=== PATIENT | female | born 1965 | race Caucasian/White ===

== ENCOUNTER → 2016-10-04 | Outpatient (CLI) | payer MEDICARE, OTHER, MEDICAID ==
[2016-10-04 10:11] LABS: ABSOLUTE LYMPHOCYTES (AUTO) 1.7 10^3/uL (0.5-4.7); ABSOLUTE MONOCYTES (AUTO) 0.3 10^3/uL (0.1-1.4); ABSOLUTE NEUT (AUTO) 2.9 10^3/uL (1.7-8.2); BASOPHILS % (AUTO) 0.3 % (0-2); HEMATOCRIT 40.2 % (36.0-47.0); HEMOGLOBIN 13.9 g/dL (12.0-15.5); HGB HCT DIFFERENCE 1.5; LYMPHOCYTES % (AUTO) 34.9 % (13-45); MEAN CORPUSCULAR HEMOGLOBIN 28.6 pg (27.0-33.4); MEAN CORPUSCULAR HGB CONC 34.5 g/dL (32.0-36.0); MEAN CORPUSCULAR VOLUME 83 fl (80-97); RED BLOOD COUNT 4.84 10^6/uL (3.72-5.28); RED CELL DISTRIBUTION WIDTH 13.7 % (11.5-14.0); SEGMENTED NEUTROPHILS % (AUTO) 58.8 % (42-78)
[2016-10-04 10:34] LABS: ALANINE AMINOTRANSFERASE 26 U/L (9-52); ALBUMIN 4.1 g/dL (3.5-5.0); ALKALINE PHOSPHATASE 91 U/L (38-126); ANION GAP 11 (5-19); ASPARTATE AMINO TRANSFERASE 20 U/L (14-36); BILIRUBIN,DIRECT 0.3 mg/dL (0.0-0.4); BILIRUBIN,TOTAL 0.6 mg/dL (0.2-1.3); BLOOD UREA NITROGEN 14 mg/dL (7-20); CALCIUM 9.6 mg/dL (8.4-10.2); CARBON DIOXIDE 24 mmol/L (22-30); CHLORIDE 106 mmol/L (98-107); CREATININE RESULT 0.63 mg/dL (0.52-1.25); GLUCOSE 98 mg/dL (75-110); POTASSIUM 4.6 mmol/L (3.6-5.0); SODIUM 141.4 mmol/L (137-145); TOTAL PROTEIN 7.4 g/dL (6.3-8.2)
== END ==
LOC: OD 09:15
PROVIDERS: ATTEND Nurse Practitioner Psychiatric/Mental Health
DX: D64.9 Anemia, unspecified (principal); E66.9 Obesity, unspecified
CPT/HCPCS: 36415; 80053; 85025

== ENCOUNTER → 2017-05-30 | Outpatient (CLI) | payer MEDICARE, OTHER, MEDICAID ==
--- NOTE | 2017-05-30 11:58 | RADIOLOGY REPORT (SQ) ---
EXAM DESCRIPTION: MRI HEAD COMBO COMPLETED DATE/TIME: 05/30/2017 11:36 am REASON FOR STUDY: H90.3 SENSORINEURAL HEARING LOSS, BILATERAL H90.3 SENSORINEURAL HEARING LOSS, ELLEN ATERAL COMPARISON: None. TECHNIQUE: Multiplanar imaging includes noncontrasted T1, T2, FLAIR, diffusion with ADC map and post gadolinium contrast T1 sequences. Thin sections through the internal auditory canals. Images stored on PACS. CONTRAST TYPE AND DOSE: 20 mL Multihance. RENAL FUNCTION: GFR > 60. LIMITATIONS: None. FINDINGS: ANATOMY: No anomalies. Normal vascular flow voids. Pituitary fossa normal. CSF SPACES: Normal in size and contour. No hemorrhage. CEREBRUM: Sulci and gyri normal in size and contour. Normal white matter signal on FLAIR imaging. No evidence of hemorrhage, mass, or extraaxial fluid collection. No abnormal enhancement post contrast. POSTERIOR FOSSA: No signal alteration. No hemorrhage. No edema, masses, or mass effect. Internal abdirashid tory canals, cerebellopontine angles, mastoids normal. No enhancing lesions. No abnormal enhancement post contrast. DIFFUSION IMAGING: Negative for acute or subacute infarction. ORBITS: There is approximately 1.9 cm diameter well-circumscribed heterogeneously enhancing left retr obulbar mass. Intermediate signal on T2. Mass appears separate from the optic nerve. PARANASAL SINUSES: No fluid levels. Mucosa normal. OTHER: No other significant finding. IMPRESSION: 1. 2 cm left retrobulbar mass. Ophthalmology consultation is recommended. 2. Normal IAC's. EVIDENCE OF ACUTE STROKE: NO. TECHNICAL DOCUMENTATION: JOB ID: [id number]- All Rights Reserved
== END ==
LOC: RAD 11:02
PROVIDERS: ATTEND Otolaryngology
DX: H90.3 Sensorineural hearing loss, bilateral (principal)
CPT/HCPCS: 82565; 70553; A9577

== ENCOUNTER → 2018-02-13 | Outpatient (CLI) | payer MEDICARE, OTHER ==
--- NOTE | 2018-02-13 09:18 | WOMENS IMAGING REPORT ---
EXAM DESCRIPTION: 3D SCREENING MAMMO BILAT COMPLETED DATE/TIME: 02/13/2018 8:31 am REASON FOR STUDY: SCREENING MAMMO Z12.31 ENCNTR SCREEN MAMMOGRAM FOR MALIGNANT NEOPLASM OF GREGORIO COMPARISON: Multiple since 2010 TECHNIQUE: Standard craniocaudal and mediolateral oblique views of each breast recorded using digita l acquisition and breast tomosynthesis. LIMITATIONS: None. FINDINGS: Findings present which are benign by mammographic criteria. No suspicious masses, calcifi cations or architectural distortion. Pertinent benign findings: Benign bilateral breast parenchymal calcifications Read with the assistance of CAD. .[facility] - R2 Cenova Version 1.3 .[facility] - R2 Cenova Version 1.3 .[facility] - R2 Cenova Version 2.4 .[facility] [place] R2 Cenova Version 2.4 .[facility] - R2 High [employer] Mathematics Teacher Version 9.2 Benign mammographic findings may include one or more of the following: Smooth masses, popcorn/rim/co arse calcifications, asymmetries, post-procedure changes, and lesions with long-standing stability. IMPRESSION: BENIGN MAMMOGRAPHIC FINDINGS. BIRADS 2 BREAST DENSITY: d. The breasts are extremely dense, which lowers the sensitivity of mammography. BIRAD: 2 BENIGN FINDING(S) RECOMMENDATION: RECOMMENDATION: ROUTINE SCREENING Please continue yearly bilateral screening tomosynthesis in January 2019 COMMENT: The patient has been notified of the results by letter per SA requirements. Additional no tification policies are in place for contacting patient with suspicious or incomplete findings. Quality ID #225: The [employer] recommends an annual screening mammogram for women aged 40 years or over. This facility utilizes a reminder system to ensure that all patients receive reminder letters, and/or direct phone calls for appointments. This includes reminders for routine scr eening mammograms, diagnostic mammograms, or other Breast Imaging Interventions when appropriate. Th is patient will be placed in the appropriate reminder system. The [employer] (ACR) has developed recommendations for screening MRI of the breast s in certain patient populations, to be used in conjunction with mammography. Breast MRI surveillanc e may be appropriate for women with more than 20% lifetime risk of developing breast cancer as deter mined by genetic testing, significant family history of the disease, or history of mantle radiation f or Hodgkins Disease. ACR Practice Guidelines 2008. DBT Technology DBT is a type of tomographic mammography. With conventional mammography, overlapping breast tissue ma y make lesions difficult to detect, even with good compression. DBT uses an x-ray tube that rotates a round the breast, taking images at different angles. These images are then combined to create thin sl ices of the breast that the radiologist can view as a 3D reconstruction. The IntelliMat unit can perform full-field digital mammograms (2D imaging); or DBT (3D imaging); or both, in a combination mode that quickly performs both the mammogram and the tomosynthesis scan while the breast is still compressed. PQRS 6045F: Fluoroscopic imaging is not utilized for breast tomosynthesis. TECHNICAL DOCUMENTATION: FINDING NUMBER: (1) ASSESSMENT: (1) JOB ID: [id number] [employer]- All Rights Reserved Reading location - IP/workstation name: [email or web address]
== END ==
LOC: WI 08:02
PROVIDERS: ATTEND Internal Medicine Geriatric Medicine
DX: Z12.31 Encounter for screening mammogram for malignant neoplasm of breast (principal)
CPT/HCPCS: 77063; 77067

== ENCOUNTER 2018-11-22 08:10 | Emergency (ER) | payer MEDICARE, OTHER ==
[2018-11-22 08:17] VITALS: BP 116/85
[2018-11-22] MEDS ORDERED: IBUPROFEN 800 MG TABLET PO ONE (09:13)
--- NOTE | 2018-11-22 09:17 | ER Document Report ---
ED Extremity Problem, Lower - General Chief Complaint: Foot Pain Stated Complaint: FOOT PAIN Time Seen by Provider: 11/22/18 09:12 Primary Care Provider: AFRICA PÉREZ MD [Primary Care Provider] - Follow up as needed Mode of Arrival: Wheelchair Information source: Patient Notes: 52-year-old female presents to ED for complaint of a very painful blister to the bottom of the left heel. She states she does not remember any injury but she thinks she might have accidentally hit the door jam between the 2 rooms with her heel on Monday. There is no infection to the area there is a blister. She states it is too painful to walk and work but she has been working until today. Patient is alert oriented respirations regular and unlabored speaking in full sentences while limp due to the pain in her left heel. TRAVEL OUTSIDE OF THE [place] IN LAST 30 DAYS: No - HPI Patient complains to provider of: Pain, Other Location: Foot Occurred: Other - Monday or Monday Where: Home Onset/Duration: Gradual Quality of pain: Sharp, Throbbing Severity: Severe Pain Level: 5 Context: Barefoot Recent injury: Possibly Exacerbated by: Movement, Walking Relieved by: Nothing, Elevation, Rest - Related Data Allergies/Adverse Reactions: amoxicillin trihydrate [From Augmentin] Allergy (Intermediate, Verified 11/22/18 08:17) itching Penicillins Allergy (Intermediate, Verified 11/22/18 08:17) itching Potassium Clavulanate * [From Augmentin] Allergy (Intermediate, Verified 11/22/18 08:17) itching latex [Latex] Allergy (Mild, Verified 11/22/18 08:17) hands red and itching CRYSTAL SUGAR Allergy (Severe, Uncoded 11/22/18 08:17) ITCHING FROSTED MINI WHEATS Allergy (Severe, Uncoded 11/22/18 08:17) ITCHING Past Medical History - General Information source: Patient - Social History Smoking Status: Never Smoker Chew tobacco use (# tins/day): No Frequency of alcohol use: None Drug Abuse: None Occupation: [employer] Lives with: Family Family History: None Patient has suicidal ideation: No Patient has homicidal ideation: No - Past Medical History Cardiac Medical History: Reports: None Denies: Hx Coronary Artery Disease, Hx Heart Attack, Hx Hypertension Pulmonary Medical History: Reports: None EENT Medical History: Reports: None Neurological Medical History: Reports: Hx Seizures - SEIZURE PADS ON RAILS FALL BAND APPLIED Endocrine Medical History: Reports: None Renal/ Medical History: Reports: None Malignancy Medical History: Reports: None GI Medical History: Reports: None Musculoskeletal Medical History: Reports Hx Arthritis, Reports Hx Musculoskeletal Trauma Skin Medical History: Reports None Psychiatric Medical History: Reports: None Traumatic Medical History: Reports: Hx Fractures - Toe Infectious Medical History: Reports: None Past Surgical History: Reports: Hx Oral Surgery, Hx Thyroid Surgery - Immunizations Hx Diphtheria, Pertussis, Tetanus Vaccination: No Review of Systems - Review of Systems Constitutional: No symptoms reported EENT: No symptoms reported Cardiovascular: No symptoms reported Respiratory: No symptoms reported Gastrointestinal: No symptoms reported Genitourinary: No symptoms reported Female Genitourinary: No symptoms reported Musculoskeletal: No symptoms reported Skin: Other - Large blister to the bottom of the left heel no signs of infection Hematologic/Lymphatic: No symptoms reported Neurological/Psychological: No symptoms reported -: Yes All other systems reviewed and negative Physical Exam - Vital signs Vitals: Temp Pulse Resp BP Pulse Ox 98.7 F 104 H 16 116/85 96 11/22/18 08:16 11/22/18 08:16 11/22/18 08:16 11/22/18 08:16 11/22/18 08:16 Interpretation: Normal - General General appearance: Appears well, Alert - HEENT Head: Normocephalic, Atraumatic Eyes: Normal Pupils: PERRL - Respiratory Respiratory status: No respiratory distress Chest status: Nontender Breath sounds: Normal Chest palpation: Normal - Cardiovascular Rhythm: Regular Heart sounds: Normal auscultation Murmur: No - Abdominal Inspection: Normal Distension: No distension Bowel sounds: Normal Tenderness: Nontender Organomegaly: No organomegaly - Back Back: Normal, Nontender - Extremities General upper extremity: Normal inspection, Nontender, Normal color, Normal ROM, Normal temperature General lower extremity: Normal color, Normal ROM, Normal temperature. No: Conchita's sign Foot: Tender, Ecchymosis, No evidence of FB, Other - Large water-filled blister to the bottom of the left heel no signs of infection - Neurological Neuro grossly intact: Yes Cognition: Normal Orientation: AAOx4 Fingal Coma Scale Eye Opening: Spontaneous Fingal Coma Scale Verbal: Oriented Rogelio Coma Scale Motor: Obeys Commands Rogelio Coma Scale Total: 15 Speech: Normal Motor strength normal: LUE, RUE, LLE, RLE Sensory: Normal - Psychological Associated symptoms: Normal affect, Normal mood - Skin Skin Temperature: Warm Skin Moisture: Dry Skin Color: Normal Course - Re-evaluation Re-evalutation: 11/22/18 09:23 Patient was medicated with ibuprofen and instructed to follow-up with podiatry for continued pain in this blister to the bottom of the left heel. Patient verbalized understanding and agreement with treatment plan patient was discharged home. - Vital Signs Vital signs: Temp Pulse Resp BP Pulse Ox 98.7 F 104 H 16 116/85 96 11/22/18 08:16 11/22/18 08:16 11/22/18 08:16 11/22/18 08:16 11/22/18 08:16 Discharge - Discharge Clinical Impression: Blister of left heel Qualifiers: Encounter type: initial encounter Qualified Code(s): S90.822A - Blister (nonthermal), left foot, initial encounter Condition: Stable Disposition: HOME, SELF-CARE Additional Instructions: You were seen today for large blisters that is painful to the back of your left heel. Acetaminophen Acetaminophen may be taken for pain relief or fever control. It's much safer than aspirin, offering a wider range of "safe" dosages. It is safe during . Some brand names are Tylenol, Panadol, Datril, Anacin 3, Tempra, and Liquiprin. Acetaminophen can be repeated every four hours. The following are maximum recommended dosages: WEIGHT Dose Drops Elixir Chewable(80mg) (LBS.) drprs=droppers tsp=teaspoon 6 40 mg .4 ml (1/2) 6-11 80 mg .8 ml (full) 1/2 tsp 1 tab 12-16 120 mg 1 1/2 drprs 3/4 tsp 1 1/2 tabs 17-23 160 mg 2 drprs 1 tsp 2 tabs 24-30 240 mg 3 drprs 1 1/2 tsp 3 tabs 30-35 320 mg 2 tsp 4 tabs 36-41 360 mg 2 1/4 tsp 4 1/2 tabs 42-47 400 mg 2 1/2 tsp 5 tabs 48-53 480 mg 3 tsp 6 tabs 54-59 520 mg 3 1/4 tsp 6 1/2 tabs 60-64 560 mg 3 1/2 tsp 7 tabs 65-70 600 mg 3 3/4 tsp 7 1/2 tabs 71-76 640 mg 4 tsp 8 tabs 77-82 720 mg 4 1/2 tsp 9 tabs 83-88 800 mg 5 tsp 10 tabs >89 pounds or adults 650 mg to 900 mg Acetaminophen can be repeated every four hours. Maximum daily dose not to exceed 4000 mg. These maximum recommended dosages are slightly higher than the dosages written on the product container, but these dosages are very safe and well below the toxic dosage for acetaminophen. Ibuprofen Ibuprofen is an excellent, safe drug for pain control. In addition, it has potent antiinflammatory effects which are beneficial, especially in the treatment of injuries, arthritis, or tendonitis. It's best to take ibuprofen with food. Persons with ulcer disease or allergy to aspirin should notify their physician of this before taking ibuprofen. Take the medication exactly as prescribed. Don't take additional doses unless instructed to do so by your doctor. If you develop wheezing, shortness of breath, hives, faintness, stomach pain, vomiting, or dark black stools, return for re-evaluation at once. Try to get some callus pads to place on this area until you can follow-up with the junior database administrator. FOLLOW-UP CARE: If you have been referred to a physician for follow-up care, call the physicians office for an appointment as you were instructed or within the next two days. If you experience worsening or a significant change in your symptoms, notify the physician immediately or return to the Emergency Department at any time for re-evaluation. Forms: Return to Work Referrals: AFRICA PÉREZ MD [Primary Care Provider] - Follow up as needed THERESA MADRIGAL DPM [ACTIVE STAFF] - Follow up as needed
== END 2018-11-22 09:20 | disposition home or self-care (01) ==
LOC: ER 08:10
DX: S90.822A Blister (nonthermal), left foot, initial encounter (principal); M79.672 Pain in left foot; X58.XXXA Exposure to other specified factors, initial encounter; Y92.009 Unspecified place in unspecified non-institutional (private) residence as the place of occurrence of the external cause; Z88.0 Allergy status to penicillin; Z91.040 Latex allergy status
CPT/HCPCS: 99283; A9270

== ENCOUNTER → 2019-02-18 | Outpatient (CLI) | payer MEDICARE, OTHER ==
--- NOTE | 2019-02-18 15:28 | WOMENS IMAGING REPORT ---
EXAM DESCRIPTION: 3D SCREENING MAMMO BILAT COMPLETED DATE/TIME: 02/18/2019 10:39 am REASON FOR STUDY: Z12.31 SCREENING MAMMO Z12.31 ENCNTR SCREEN MAMMOGRAM FOR MALIGNANT NEOPLASM OF B RE COMPARISON: 02/13/2018 and 02/29/2016. EXAM PARAMETERS: Standard craniocaudal and mediolateral oblique views of each breast recorded using digital acquisition and breast tomosynthesis. Read with the assistance of CAD. .[facility] - R2 Garland Maker Version 9.2 LIMITATIONS: None. FINDINGS: Findings present which are benign by mammographic criteria. No suspicious masses, calcific ations or architectural distortion. Pertinent benign findings: Benign calcifications. Benign mammographic findings may include one or more of the following: Smooth masses, popcorn/rim/coa rse calcifications, asymmetries, post-procedure changes, and lesions with long-standing stability. IMPRESSION: BENIGN MAMMOGRAPHIC FINDINGS. BIRADS 2 BREAST DENSITY: c. The breasts are heterogeneously dense, which may obscure small masses. BIRAD: ASSESSMENT: 2 BENIGN FINDING(S) RECOMMENDATION: ROUTINE SCREENING COMMENT: The patient has been notified of the results by letter per SA requirements. Additional no tification policies are in place for contacting patient with suspicious or incomplete findings. Quality ID #225: The [employer] recommends an annual screening mammogram for women aged 40 years or over. This facility utilizes a reminder system to ensure that all patients receive reminder letters, and/or direct phone calls for appointments. This includes reminders for routine scr eening mammograms, diagnostic mammograms, or other Breast Imaging Interventions when appropriate. Th is patient will be placed in the appropriate reminder system. TECHNICAL DOCUMENTATION: FINDING NUMBER: (1) ASSESSMENT: (1) JOB ID: [id number] [employer]- All Rights Reserved Reading location - IP/workstation name: [email or web address] [email or web address]
== END ==
LOC: WI 10:10
PROVIDERS: ATTEND Internal Medicine Geriatric Medicine
DX: Z12.31 Encounter for screening mammogram for malignant neoplasm of breast (principal)
CPT/HCPCS: 77063; 77067

== ENCOUNTER 2019-03-13 08:15 | Day surgery (SDC) | payer MEDICARE, OTHER ==
[2019-03-13] MEDS ORDERED: PROPOFOL INJ 200 MG/20 ML VIAL IV ONE (08:19)
[2019-03-13 11:54] VITALS: BP 131/87
--- NOTE | 2019-03-13 11:56 | Operative Report ---
Operative Report DATE OF SURGERY: 03/13/19 Operative Report: The risks, benefits and alternatives of the procedure including the risk of bleeding, perforation requiring surgery have been explained to the patient in detail and informed consent has been obtained. The patient is brought back to the endoscopy suite and placed in the left, lateral decubital position. Timeout was called. Propofol medication is administered. Rectal examination is done which did not reveal any masses, tears or fissures. An Olympus videoscope was introduced into the patient's rectum. Scope was then carefully advanced all the way to the cecum. Cecum was identified by the usual anatomical landmarks including the ileocecal valve as well as the appendiceal office. Photodocumentation is obtained. Scope was then sequentially pulled back via the various segments of the colon including the ascending colon, hepatic flexure, transverse colon, splenic flexure, descending colon and finally into the rectosigmoid portions of the colon. Retroflexion maneuvers performed. PREOPERATIVE DIAGNOSIS: Personal history of polyp POSTOPERATIVE DIAGNOSIS: Ascending colon polyp removed via biopsy forceps. Hepatic flexure polyp removed via snare polypectomy and retrieved, site cauterized. Internal hemorrhoids. Mild melanosis coli OPERATION: Colonoscopy with snare polypectomy. Colonoscopy with biopsy SURGEON: RAHEEM FELIX ANESTHESIA: LMAC TISSUE REMOVED OR ALTERED: As noted above. COMPLICATIONS: None. ESTIMATED BLOOD LOSS: None. INTRAOPERATIVE FINDINGS: As noted above. PROCEDURE: Patient tolerated the procedure well. No immediate post procedure complications are noted. Patient is discharged in good condition. Discharge date 03/13/2019. Discharge diet: Regular. Discharge activity: Regular. 2 to 3-week follow-up to discuss findings. Patient is instructed to call the office or proceed to the emergency room should there be any further problems or questions. 3 to 5-year surveillance colonoscopy.
== END 2019-03-13 12:00 | disposition home or self-care (01) ==
LOC: OROUT 08:15
PROVIDERS: ATTEND Internal Medicine Gastroenterology
DX: Z86.010 Personal history of colon polyps (principal); D12.2 Benign neoplasm of ascending colon; K64.8 Other hemorrhoids; K63.89 Other specified diseases of intestine; Z79.899 Other long term (current) drug therapy; D12.6 Benign neoplasm of colon, unspecified; E66.9 Obesity, unspecified; Z68.33 Body mass index [BMI] 33.0-33.9, adult
CPT/HCPCS: 45380; 88305 ×2; 00811; J2704; 811

== ENCOUNTER 2019-06-11 18:26 | Observation (INO) | payer MEDICARE, OTHER ==
[2019-06-11 18:57] LABS: ABSOLUTE LYMPHOCYTES (AUTO) 0.6 10^3/uL (0.5-4.7); ABSOLUTE MONOCYTES (AUTO) 0.1 10^3/uL (0.1-1.4); ABSOLUTE NEUT (AUTO) 7.7 10^3/uL (1.7-8.2); BASOPHILS % (AUTO) 0.1 % (0-2); HEMATOCRIT 36.9 % (36.0-47.0); HEMOGLOBIN 13.1 g/dL (12.0-15.5); LYMPHOCYTES % (AUTO) 6.7 % (13-45); MEAN CORPUSCULAR HEMOGLOBIN 28.9 pg (27.0-33.4); MEAN CORPUSCULAR HGB CONC 35.5 g/dL (32.0-36.0); MEAN CORPUSCULAR VOLUME 82 fl (80-97); MONOCYTES % (AUTO) 1.2 % (3-13); PLATELET COUNT 211 10^3/uL (150-450); RED BLOOD COUNT 4.52 10^6/uL (3.72-5.28); RED CELL DISTRIBUTION WIDTH 14.1 % (11.5-14.0); TOTAL CELLS COUNTED % (AUTO) 100 %; WHITE BLOOD COUNT 8.4 10^3/uL (4.0-10.5)
[2019-06-11 19:15] LABS: ALBUMIN 4.1 g/dL (3.5-5.0); ALKALINE PHOSPHATASE 87 U/L (38-126); ANION GAP 9 (5-19); ASPARTATE AMINO TRANSFERASE 25 U/L (14-36); BILIRUBIN,DIRECT 0.3 mg/dL (0.0-0.4); BILIRUBIN,TOTAL 0.5 mg/dL (0.2-1.3); BLOOD UREA NITROGEN 17 mg/dL (7-20); CALCIUM 9.1 mg/dL (8.4-10.2); CARBON DIOXIDE 25 mmol/L (22-30); CHLORIDE 105 mmol/L (98-107); GLUCOSE 150 mg/dL (75-110); POTASSIUM 3.9 mmol/L (3.6-5.0); TOTAL PROTEIN 7.5 g/dL (6.3-8.2)
[2019-06-11 19:16] LABS: ALCOHOL < 10 mg/dL (NONE DETECTED)
[2019-06-11] MEDS ORDERED: LORAZEPAM INJ 2 MG/1 ML VIAL IV ONE (22:46)
[2019-06-11] MEDS ORDERED: PHENYTOIN SODIUM INJ/PF 250 MG/5 ML SDV IV ONE (22:48)
--- NOTE | 2019-06-11 22:49 | ER Document Report ---
ED General - General Chief Complaint: Seizure Stated Complaint: POSSIBLE SEIZURE Time Seen by Provider: 06/11/19 22:46 Primary Care Provider: AFRICA PÉREZ MD [Primary Care Provider] - Follow up as needed Mode of Arrival: Ambulatory Information source: Patient, Relative TRAVEL OUTSIDE OF THE [place] IN LAST 30 DAYS: No - HPI Onset: Yesterday Onset/Duration: Sudden Quality of pain: No pain Severity: Severe Pain Level: Denies Associated symptoms: Other - confusion, 3 seizures at home Exacerbated by: Denies Relieved by: Denies Similar symptoms previously: No - patient has never had back to back seizures like this before Recently seen / treated by doctor: No Notes: 53 year old female with a history of Seizures maintained on Keppra 750mg BID here for back to back seizures. The patient apparently had 3 seizures at home prior to ER arrival. The patient and her tell me she has not missed any of her Keppra doses and she has not had a seizure in 8 years. The patient had a 4th seizure in the ER before I performed a full physical exam. Patient was given ativan in the ER followed by Phenytoin and my history was obtained from her initially and then by her once she was not postical. Patient and deny recent fevers, chills, sweats, nausea, vomiting or infectious symptoms. Patient hit her head during one seizure today apparently. - Related Data Allergies/Adverse Reactions: amoxicillin trihydrate [From Augmentin] Allergy (Intermediate, Verified 06/11/19 18:43) itching Penicillins Allergy (Intermediate, Verified 06/11/19 18:43) itching Potassium Clavulanate * [From Augmentin] Allergy (Intermediate, Verified 06/11/19 18:43) itching latex [Latex] Allergy (Mild, Verified 06/11/19 18:43) hands red and itching CRYSTAL SUGAR Allergy (Severe, Uncoded 06/11/19 18:43) ITCHING FROSTED MINI WHEATS Allergy (Severe, Uncoded 06/11/19 18:43) ITCHING Home Medications: Levertiractem, ibuprofen, omeprazole, benzonate, zomig, ferrous sulfate, oxybutin. Past Medical History - General Information source: Patient - Social History Smoking Status: Never Smoker Chew tobacco use (# tins/day): No Frequency of alcohol use: None Drug Abuse: None Lives with: Family Family History: None Patient has suicidal ideation: No Patient has homicidal ideation: No - Past Medical History Cardiac Medical History: Denies: Hx Coronary Artery Disease, Hx Heart Attack, Hx Hypertension Pulmonary Medical History: Denies: Hx Asthma, Hx Bronchitis, Hx COPD, Hx Pneumonia Neurological Medical History: Reports: Hx Seizures - LAST SZ 11YRS AGO. Denies: Hx Cerebrovascular Accident Renal/ Medical History: Denies: Hx Peritoneal Dialysis Musculoskeletal Medical History: Reports Hx Arthritis - BACK, Reports Hx Musculoskeletal Trauma Traumatic Medical History: Reports: Hx Fractures - Toe Past Surgical History: Reports: Hx Oral Surgery, Hx Thyroid Surgery. Denies: Hx Hysterectomy - Immunizations Hx Diphtheria, Pertussis, Tetanus Vaccination: No Hx Pneumococcal Vaccination: 01/29/19 Review of Systems - Review of Systems Constitutional: No symptoms reported EENT: No symptoms reported Cardiovascular: No symptoms reported Respiratory: No symptoms reported Gastrointestinal: No symptoms reported Genitourinary: No symptoms reported Female Genitourinary: No symptoms reported Musculoskeletal: No symptoms reported Skin: No symptoms reported Hematologic/Lymphatic: No symptoms reported Neurological/Psychological: Seizure -: Yes All other systems reviewed and negative Physical Exam - Vital signs Vitals: Resp Pulse Ox 23 H 95 06/11/19 18:35 06/11/19 18:35 - Notes Notes: GENERAL: Well-appearing, well-nourished and in no acute distress. HEAD: Atraumatic, normocephalic. EYES: Pupils equal round and reactive to light, extraocular movements intact, sclera anicteric, conjunctiva are normal. ENT: TMs normal, nares patent, oropharynx clear without exudates. Moist mucous membranes. NECK: Normal range of motion, supple without lymphadenopathy or JVD. LUNGS: Breath sounds clear to auscultation bilaterally and equal. No wheezes rales or rhonchi. HEART: Regular rate and rhythm without murmurs, rubs or gallops. ABDOMEN: Soft, nontender, normoactive bowel sounds. No guarding, no rebound. No masses appreciated. EXTREMITIES: Normal range of motion, no pitting or edema. No clubbing or cyanosis. NEUROLOGICAL: Cranial nerves II through XII grossly intact. Normal speech, normal gait. PSYCH: Normal mood, normal affect. SKIN: Warm, Dry, normal turgor, no rashes or lesions noted. Course - Re-evaluation Re-evalutation: 06/12/19 00:42 The patient had 3 seizures at home and she had 1 seizure here in the ER. The patient says she has been taking her Keppra 750mg BID as prescribed and she says she hasnt missed any doses. Patient was given 1mg of Ativan in the ER right after her seizure and 1g of Phenytoin. Patient admitted for OBs to her PCP Dr. Pérez. Keppra level ordered but it is a send out. Labs are unremarkable in the ER and her head CT (ordered due to concern of head trauma during a seizure and fact she had back to back seizures) unremarkable. - Vital Signs Vital signs: Temp Pulse Resp BP Pulse Ox 97.8 F 82 17 112/65 95 06/11/19 18:43 06/11/19 18:43 06/11/19 22:01 06/11/19 22:01 06/11/19 22:01 - Laboratory Result Diagrams: 06/11/19 18:37 06/11/19 18:37 Laboratory results interpreted by me: 06/11/19 06/11/19 18:37 18:37 RDW 14.1 H Lymph % (Auto) 6.7 L Hudson % (Auto) 1.2 L Seg Neutrophils % 92.0 H Glucose 150 H Discharge - Discharge Clinical Impression: Seizure disorder Condition: Stable Disposition: ADMITTED OBSERVATION Admitting Provider: Dylon Unit Admitted: Telemetry Referrals: AFRICA PÉREZ MD [Primary Care Provider] - Follow up as needed
--- NOTE | 2019-06-11 23:58 | RADIOLOGY REPORT (SQ) ---
CT HEAD WITHOUT IV CONTRAST EXAM DATE: 06/11/2019 10:56 PM MAILS SUPERVISOR HISTORY: having back to back seizures, had head trauma. COMPARISON: None. TECHNIQUE: CT scan of the brain without IV contrast. This exam was performed according to our departmental dose-optimization program, which includes automated exposure control, adjustment of the mA and/or kV according to patient size and/or use of iterative reconstruction technique. FINDINGS: The ventricles, cisterns, and sulci are age-appropriate. No evidence of acute infarction, intracranial hemorrhage, extra-axial fluid collection, or midline shift. No air-fluid levels are seen in the paranasal sinuses to suggest acute sinusitis. No depressed skull fracture. IMPRESSION: No acute intracranial findings.
[2019-06-12] MEDS ORDERED: LORAZEPAM INJ 2 MG/1 ML VIAL IV ONE (02:17)
[2019-06-12] MEDS: ACETAMINOPHEN 325 MG TABLET PO PRN (12:42)
[2019-06-13] MEDS ORDERED: BENZONATATE 100 MG CAPSULE PO PRN (01:54)
[2019-06-13] MEDS ORDERED: DOCUSATE SODIUM 100 MG CAPSULE PO PRN (01:54)
--- NOTE | 2019-06-13 02:45 | PDOC H&P ---
History of Present Illness Admission Date/PCP: 06/12/19 00:47 [facility] Patient complains of: Seizure activity History of Present Illness: MARYSE MCINTYRE is a 53 year old female patient known to my practice who presented to the ED with her brother due to witnessed recurrent seizure activities. Patient reported that she was unaware of the seizure but related onset to job related stress at local [employer]. She reported that her brother wasa present and able to narrate the course of her presenting symptoms. As per documented report, she had a witnessed seizure while in the ED that resolved with administration of Lorazepam and Phenytoin. Patient reported compliance with her anti seizure medication. She denied alcohol or illicit drug usage. No fever or chills. No reported vomiting with seizure episode. There was reported hitting of her head in the process of her seizure activity. She reported episode of headache since her admission. There is no recurrent seizure since arrival on the telemetry floor. She is currently on seizure precaution protocol. She denied any nausea, vomiting, abdominal pain, or diarrhea. no dysuria, urinary frequency, hematuria, or flank pain. She denied an dizziness, coughing, chest pain or difficulty with breathing. Her initial ED evaluation was unrevealing regarding possible etiology of her seizure activity. Her CT head a=was essentially normal. Her morbidities are as listed below. She was advised hospitalization for further evaluation and management. Past Medical History Cardiac Medical History: Denies: Coronary Artery Disease, Myocardial Infarction, Hypertension Pulmonary Medical History: Denies: Asthma, Bronchitis, Chronic Obstructive Pulmonary Disease (COPD), Pneumonia Neurological Medical History: Reports: Seizures - LAST SZ 11YRS AGO Musculoskeltal Medical History: Reports: Arthritis - BACK Psychiatric Medical History: Reports: Other - Developmental disability Hematology: Reports: Anemia Past Surgical History Past Surgical History: Denies: Hysterectomy Social History Lives with: Family Smoking Status: Never Smoker Electronic Cigarette use?: No - Advance Directive Resuscitation Status: Full Code Family History Family History: None Parental Family History Reviewed: Yes Children Family History Reviewed: Yes Sibling(s) Family History Reviewed.: Yes Medication/Allergy Home Medications: Ascorbic Acid [Vitamin C 500 mg Tablet] 500 mg PO DAILY 09/05/13 Docusate Sodium [Colace 100 mg Capsule] 200 mg PO QPM PRN 09/05/13 Ferrous Sulfate [Iron] 325 mg PO DAILY 09/05/13 Oxybutynin Chloride [Ditropan Xl] 10 mg PO BID 09/05/13 Vitamin B Comp and Vit C No.6 [Strovite] 2 each PO BID 09/05/13 Zolmitriptan [Zomig] 5 mg PO Q2HP PRN MDD 10MG 09/05/13 Omeprazole 40 mg PO ACBRKFST 03/12/19 Benzonatate [Tessalon Perles 100 mg Capsule] 200 mg PO Q8HP PRN 06/12/19 Ibuprofen [Motrin 800 mg Tablet] 800 mg PO Q8HP PRN 06/12/19 Levetiracetam 1,500 mg PO BID 06/12/19 Allergies/Adverse Reactions: amoxicillin trihydrate [From Augmentin] Allergy (Intermediate, Verified 06/11/19 18:43) itching apple Allergy (Intermediate, Verified 06/12/19 09:04) Generalized Itching Penicillins Allergy (Intermediate, Verified 06/11/19 18:43) itching Potassium Clavulanate * [From Augmentin] Allergy (Intermediate, Verified 06/11/19 18:43) itching latex [Latex] Allergy (Mild, Verified 06/11/19 18:43) hands red and itching CRYSTAL SUGAR Allergy (Severe, Uncoded 06/11/19 18:43) ITCHING FROSTED MINI WHEATS Allergy (Severe, Uncoded 06/11/19 18:43) ITCHING Review of Systems Constitutional: PRESENT: headache(s). ABSENT: chills, fever(s), weight gain, weight loss Eyes: PRESENT: visual disturbances Ears: ABSENT: hearing changes Nose, Mouth, and Throat: PRESENT: headache(s) Cardiovascular: ABSENT: chest pain, dyspnea on exertion, edema, orthropnea, palpitations Respiratory: ABSENT: cough, hemoptysis Gastrointestinal: ABSENT: abdominal pain, constipation, diarrhea, hematemesis, hematochezia, nausea, vomiting Genitourinary: ABSENT: dysuria, hematuria Musculoskeletal: ABSENT: joint swelling Integumentary: ABSENT: rash, wounds Neurological: PRESENT: convulsions Psychiatric: ABSENT: anxiety, depression, homidical ideation, suicidal ideation Endocrine: ABSENT: cold intolerance, heat intolerance, menstrual abnormalities, polydipsia, polyuria Hematologic/Lymphatic: ABSENT: easy bleeding, easy bruising, lymphadenopathy Allergic/Immunologic: ABSENT: seasonal rhinorrhea Physical Exam Vital Signs: Temp Pulse Resp BP Pulse Ox 97.6 F 91 16 132/85 H 98 06/12/19 03:54 06/12/19 07:00 06/12/19 03:54 06/12/19 03:54 06/12/19 03:54 Intake & Output 06/11/19 06/12/19 06/13/19 06:59 06:59 06:59 Weight 94.8 kg General appearance: PRESENT: obese Head exam: PRESENT: atraumatic, normocephalic Eye exam: PRESENT: conjunctiva pink, EOMI, PERRLA. ABSENT: scleral icterus Ear exam: PRESENT: normal external ear exam Mouth exam: PRESENT: moist, tongue midline Throat exam: ABSENT: post pharyngeal erythema, tonsillar erythema, tonsillar exudate, tonsillogmegaly, other Neck exam: PRESENT: full ROM. ABSENT: carotid bruit, JVD, lymphadenopathy, thyromegaly Respiratory exam: PRESENT: clear to auscultation flaca Cardiovascular exam: PRESENT: RRR. ABSENT: diastolic murmur, rubs, systolic murmur Pulses: PRESENT: normal dorsalis pedis pul, +2 pedal pulses bilateral Vascular exam: PRESENT: normal capillary refill GI/Abdominal exam: PRESENT: normal bowel sounds, soft. ABSENT: distended, guarding, mass, organolmegaly, rebound, tenderness Rectal exam: PRESENT: deferred Extremities exam: ABSENT: pedal edema Musculoskeletal exam: PRESENT: ambulatory Neurological exam: PRESENT: alert, awake, oriented to person, oriented to place, oriented to time, oriented to situation, CN II-XII grossly intact. ABSENT: motor sensory deficit Psychiatric exam: PRESENT: appropriate affect, normal mood. ABSENT: homicidal ideation, suicidal ideation Skin exam: PRESENT: dry, intact, warm. ABSENT: cyanosis, rash Results Laboratory Results: 06/11/19 18:37 06/11/19 18:37 06/11/19 06/11/19 18:37 18:37 WBC 8.4 RBC 4.52 Hgb 13.1 Hct 36.9 MCV 82 MCH 28.9 MCHC 35.5 RDW 14.1 H Plt Count 211 Seg Neutrophils % 92.0 H Sodium 139.1 Potassium 3.9 Chloride 105 Carbon Dioxide 25 Anion Gap 9 BUN 17 Creatinine 0.57 Est GFR ( Amer) > 60 Glucose 150 H Calcium 9.1 Magnesium 2.2 Total Bilirubin 0.5 AST 25 Alkaline Phosphatase 87 Total Protein 7.5 Albumin 4.1 Impressions: Head CT 06/11/19 22:56 IMPRESSION: No acute intracranial findings. Assessment & Plan - Diagnosis (1) Seizure disorder Is this a current diagnosis for this admission?: Yes Plan: See admitting attending physician orders for details about care plan. (2) GERD (gastroesophageal reflux disease) Qualifiers: Esophagitis presence: esophagitis presence not specified Qualified Code(s): K21.9 - Gastro-esophageal reflux disease without esophagitis Is this a current diagnosis for this admission?: Yes Plan: See admitting attending physician orders for details about care plan. (3) Migraine headache Qualifiers: Migraine type: unspecified Status migrainosus presence: without status migrainosus Intractability: not intractable Qualified Code(s): G43.909 - Migraine, unspecified, not intractable, without status migrainosus Is this a current diagnosis for this admission?: Yes Plan: See admitting attending physician orders for details about care plan. (4) Overactive bladder Is this a current diagnosis for this admission?: Yes Plan: See admitting attending physician orders for details about care plan. (5) Iron deficiency anemia Qualifiers: Iron deficiency anemia type: chronic blood loss Qualified Code(s): D50.0 - Iron deficiency anemia secondary to blood loss (chronic) Is this a current diagnosis for this admission?: Yes Plan: See admitting attending physician orders for details about care plan. - Time Time Spent: 50 to 70 Minutes Medications reviewed and adjusted accordingly: Yes Anticipated discharge: Home Within: Other - Inpatient Certification Based on my medical assessment, after consideration of the patient's comorbidities, presenting symptoms, or acuity I expect that the services needed warrant INPATIENT care.: Yes I certify that my determination is in accordance with my understanding of Medicare's requirements for reasonable and necessary INPATIENT services [42 CFR 412.3e].: Yes Medical Necessity: Significant Comorbidiites Make Outpatient Treatment Too Risky, Need Close Monitoring Due to Risk of Patient Decompensation, Need For Continuous Telemetry Monitoring, Risk of Complication if Not Cared For in Hospital, Risk of Diagnosis Which Will Require Inpatient Eval/Care/Monitoring Post Hospital Care: D/C [place] [employer] Documentation - Plan Summary Plan Summary: See admitting attending physician orders for details about care plan.
[2019-06-13] MEDS: PANTOPRAZOLE SODIUM 40 MG TABLET.DR PO SCH (05:36)
[2019-06-13 06:49] LABS: ABSOLUTE BASOPHILS # (AUTO) 0.1 10^3/uL (0.0-0.2); ABSOLUTE LYMPHOCYTES (AUTO) 2.2 10^3/uL (0.5-4.7); ABSOLUTE MONOCYTES (AUTO) 0.3 10^3/uL (0.1-1.4); ABSOLUTE NEUT (AUTO) 2.3 10^3/uL (1.7-8.2); BASOPHILS % (AUTO) 1.3 % (0-2); HEMATOCRIT 38.4 % (36.0-47.0); HEMOGLOBIN 13.4 g/dL (12.0-15.5); LYMPHOCYTES % (AUTO) 45.2 % (13-45); MEAN CORPUSCULAR HEMOGLOBIN 28.7 pg (27.0-33.4); MEAN CORPUSCULAR HGB CONC 34.9 g/dL (32.0-36.0); MEAN CORPUSCULAR VOLUME 82 fl (80-97); MONOCYTES % (AUTO) 6.6 % (3-13); RED BLOOD COUNT 4.67 10^6/uL (3.72-5.28); RED CELL DISTRIBUTION WIDTH 14.2 % (11.5-14.0); SEGMENTED NEUTROPHILS % (AUTO) 46.9 % (42-78); TOTAL CELLS COUNTED % (AUTO) 100 %; WHITE BLOOD COUNT 4.9 10^3/uL (4.0-10.5)
[2019-06-13 07:01] LABS: PLATELET COUNT 146 10^3/uL (150-450)
[2019-06-13] MEDS: OXYBUTYNIN CHLORIDE 5 MG TABLET PO SCH ×2 (09:03→17:07)
[2019-06-13] MEDS: FERROUS SULFATE 325 MG TABLET PO SCH (09:03)
[2019-06-13] MEDS: ASCORBIC ACID 500 MG TABLET PO SCH (09:03)
[2019-06-13] MEDS: LEVETIRACETAM 500 MG TABLET PO SCH ×2 (09:03→17:07)
[2019-06-13] MEDS: ENOXAPARIN SODIUM INJ 40 MG/0.4 ML DISP.SYRIN SUBCUT SCH (09:04)
[2019-06-13 09:36] LABS: ALBUMIN 3.6 g/dL (3.5-5.0); ALKALINE PHOSPHATASE 68 U/L (38-126); ANION GAP 8 (5-19); ASPARTATE AMINO TRANSFERASE 33 U/L (14-36); BILIRUBIN,DIRECT 0.3 mg/dL (0.0-0.4); BILIRUBIN,TOTAL 0.4 mg/dL (0.2-1.3); BLOOD UREA NITROGEN 18 mg/dL (7-20); CALCIUM 8.7 mg/dL (8.4-10.2); CARBON DIOXIDE 24 mmol/L (22-30); CHLORIDE 108 mmol/L (98-107); GLUCOSE 86 mg/dL (75-110); POTASSIUM 4.1 mmol/L (3.6-5.0)
[2019-06-13] MEDS: ACETAMINOPHEN 325 MG TABLET PO PRN (14:22)
--- NOTE | 2019-06-13 18:04 | PDOC PROGRESS REPORT ---
Subjective Progress Note for:: 06/13/19 Subjective:: No recurrent seizure since admission. Her serum Levetiracetam is still pending. No fever or chills. No cheat pain or difficulty with breathing. No nausea, vomiting, abdominal pain, diarrhea or constipation. Reason For Visit: SEIZURE DISORDER Physical Exam Vital Signs: Temp Pulse Resp BP Pulse Ox 98.8 F 69 16 99/68 L 94 06/13/19 14:54 06/13/19 14:54 06/13/19 14:54 06/13/19 14:54 06/13/19 14:54 Intake & Output 06/12/19 06/13/19 06/14/19 06:59 06:59 06:59 Intake Total 740 Output Total 1400 Balance -660 Weight 94.8 kg 93.9 kg General appearance: PRESENT: no acute distress, obese Head exam: PRESENT: atraumatic, normocephalic Eye exam: PRESENT: conjunctiva pink. ABSENT: scleral icterus Ear exam: PRESENT: normal external ear exam Mouth exam: PRESENT: moist Respiratory exam: PRESENT: clear to auscultation flaca Cardiovascular exam: PRESENT: RRR. ABSENT: diastolic murmur, rubs, systolic murmur Vascular exam: ABSENT: pallor GI/Abdominal exam: PRESENT: normal bowel sounds, soft. ABSENT: distended, guarding, mass, organolmegaly, rebound, tenderness Extremities exam: ABSENT: pedal edema Neurological exam: PRESENT: alert, awake, oriented to person, oriented to place, oriented to time, oriented to situation, CN II-XII grossly intact. ABSENT: motor sensory deficit Psychiatric exam: PRESENT: appropriate affect, normal mood. ABSENT: homicidal ideation, suicidal ideation Skin exam: PRESENT: dry, warm Results Laboratory Results: 06/13/19 05:51 06/13/19 08:22 06/13/19 06/13/19 06/13/19 05:51 05:51 08:22 WBC 4.9 RBC 4.67 Hgb 13.4 Hct 38.4 MCV 82 MCH 28.7 MCHC 34.9 RDW 14.2 H Plt Count 146 L Seg Neutrophils % 46.9 Sodium Cancelled 140.3 Potassium Cancelled 4.1 Chloride Cancelled 108 H Carbon Dioxide Cancelled 24 Anion Gap Cancelled 8 BUN Cancelled 18 Creatinine Cancelled 0.51 L Est GFR ( Amer) Cancelled > 60 Est GFR (Non-Af Amer) Cancelled Glucose Cancelled 86 Calcium Cancelled 8.7 Total Bilirubin Cancelled 0.4 AST Cancelled 33 Alkaline Phosphatase Cancelled 68 Total Protein Cancelled 7.0 Albumin Cancelled 3.6 Impressions: Head CT 06/11/19 22:56 IMPRESSION: No acute intracranial findings. Assessment & Plan - Diagnosis (1) Seizure disorder Is this a current diagnosis for this admission?: Yes (2) GERD (gastroesophageal reflux disease) Qualifiers: Esophagitis presence: esophagitis presence not specified Qualified Code(s): K21.9 - Gastro-esophageal reflux disease without esophagitis Is this a current diagnosis for this admission?: Yes (3) Migraine headache Qualifiers: Migraine type: unspecified Status migrainosus presence: without status migrainosus Intractability: not intractable Qualified Code(s): G43.909 - Migraine, unspecified, not intractable, without status migrainosus Is this a current diagnosis for this admission?: Yes (4) Overactive bladder Is this a current diagnosis for this admission?: Yes (5) Iron deficiency anemia Qualifiers: Iron deficiency anemia type: chronic blood loss Qualified Code(s): D50.0 - Iron deficiency anemia secondary to blood loss (chronic) Is this a current diagnosis for this admission?: Yes - Time Time Spent with patient: 25-34 minutes Level of Care: TELE Medications reviewed and adjusted accordingly: Yes Anticipated discharge: Home Within: Other - Inpatient Certification Based on my medical assessment, after consideration of the patient's c omorbidities, presenting symptoms, or acuity I expect that the services needed warrant INPATIENT care.: Yes I certify that my determination is in accordance with my understanding of Medicare's requirements for reasonable and necessary INPATIENT services [42 CFR 412.3e].: Yes Medical Necessity: Significant Comorbidiites Make Outpatient Treatment Too Risky, Need Close Monitoring Due to Risk of Patient Decompensation, Need For Continuous Telemetry Monitoring, Risk of Complication if Not Cared For in Hospital, Risk of Diagnosis Which Will Require Inpatient Eval/Care/Monitoring Post Hospital Care: D/C [employer] Documentation - Plan Summary Plan Summary: Continue current medication management. Follow up on toxicology report.
[2019-06-14] MEDS: PANTOPRAZOLE SODIUM 40 MG TABLET.DR PO SCH (05:22)
[2019-06-14 06:23] LABS: ABSOLUTE LYMPHOCYTES (AUTO) 2.3 10^3/uL (0.5-4.7); ABSOLUTE MONOCYTES (AUTO) 0.3 10^3/uL (0.1-1.4); ABSOLUTE NEUT (AUTO) 2.1 10^3/uL (1.7-8.2); BASOPHILS % (AUTO) 0.5 % (0-2); EOSINOPHILS % (AUTO) 0.1 % (0-6); HEMOGLOBIN 13.4 g/dL (12.0-15.5); LYMPHOCYTES % (AUTO) 48.3 % (13-45); MEAN CORPUSCULAR HEMOGLOBIN 28.6 pg (27.0-33.4); MEAN CORPUSCULAR HGB CONC 35.2 g/dL (32.0-36.0); MEAN CORPUSCULAR VOLUME 81 fl (80-97); MONOCYTES % (AUTO) 6.8 % (3-13); PLATELET COUNT 177 10^3/uL (150-450); RED BLOOD COUNT 4.68 10^6/uL (3.72-5.28); SEGMENTED NEUTROPHILS % (AUTO) 44.3 % (42-78); TOTAL CELLS COUNTED % (AUTO) 100 %; WHITE BLOOD COUNT 4.7 10^3/uL (4.0-10.5)
[2019-06-14 06:44] LABS: ALBUMIN 3.5 g/dL (3.5-5.0); ALKALINE PHOSPHATASE 60 U/L (38-126); ANION GAP 7 (5-19); ASPARTATE AMINO TRANSFERASE 38 U/L (14-36); BILIRUBIN,DIRECT 0.3 mg/dL (0.0-0.4); BILIRUBIN,TOTAL 0.4 mg/dL (0.2-1.3); BLOOD UREA NITROGEN 19 mg/dL (7-20); CALCIUM 8.8 mg/dL (8.4-10.2); CARBON DIOXIDE 26 mmol/L (22-30); CHLORIDE 108 mmol/L (98-107); GLUCOSE 90 mg/dL (75-110); POTASSIUM 4.3 mmol/L (3.6-5.0); TOTAL PROTEIN 6.8 g/dL (6.3-8.2)
[2019-06-14] MEDS: OXYBUTYNIN CHLORIDE 5 MG TABLET PO SCH ×2 (09:07→17:10)
[2019-06-14] MEDS: LEVETIRACETAM 500 MG TABLET PO SCH ×2 (09:07→17:10)
[2019-06-14] MEDS: ENOXAPARIN SODIUM INJ 40 MG/0.4 ML DISP.SYRIN SUBCUT SCH (09:07)
[2019-06-14] MEDS: ASCORBIC ACID 500 MG TABLET PO SCH (09:07)
[2019-06-14] MEDS: FERROUS SULFATE 325 MG TABLET PO SCH (09:07)
--- NOTE | 2019-06-14 17:33 | PDOC DISCHARGE SUMMARY ---
Impression - Admit/DC Date/PCP Admission Date/Primary Care Provider: 06/12/19 00:47 AFRICA PÉREZ Discharge Date: 06/14/19 - Discharge Diagnosis (1) Seizure disorder Is this a current diagnosis for this admission?: Yes (2) GERD (gastroesophageal reflux disease) Is this a current diagnosis for this admission?: Yes (3) Migraine headache Is this a current diagnosis for this admission?: Yes (4) Overactive bladder Is this a current diagnosis for this admission?: Yes (5) Iron deficiency anemia Is this a current diagnosis for this admission?: Yes - Assessment Summary: Patient was admitted for recurrent witnessed seizure activities. Her serum Levetiracetam is not available to me at the to me of her discharge. She demonstrated no recurrent seizure since on admission and continuation of her preadmission seizure medication. She related her recent increase seizure frequency to ongoing job related stress environment. I will write to her employer regarding her developmental mental limitation and negative contribution of stress to her medical stability. She will be discharge home today and follow up with me in the office as instructed upon discharge. - Additional Information Resuscitation Status: Full Code Discharge Diet: Regular Discharge Activity: Activity As Tolerated Referrals: AFRICA PÉREZ MD [Primary Care Provider] - 06/26/19 10:00 am Home Medications: Ascorbic Acid [Vitamin C 500 mg Tablet] 500 mg PO DAILY 09/05/13 Docusate Sodium [Colace 100 mg Capsule] 200 mg PO QPM PRN 09/05/13 Ferrous Sulfate [Iron] 325 mg PO DAILY 09/05/13 Oxybutynin Chloride [Ditropan Xl] 10 mg PO BID 09/05/13 Vitamin B Comp and Vit C No.6 [Strovite] 2 each PO BID 09/05/13 Zolmitriptan [Zomig] 5 mg PO Q2HP PRN MDD 10MG 09/05/13 Omeprazole 40 mg PO ACBRKFST 03/12/19 Benzonatate [Tessalon Perles 100 mg Capsule] 200 mg PO Q8HP PRN 06/12/19 Ibuprofen [Motrin 800 mg Tablet] 800 mg PO Q8HP PRN 06/12/19 Levetiracetam 1,500 mg PO BID 06/12/19 History of Present Illiness History of Present Illness: MARYSE MCINTYRE is a 53 year old female patient known to my practice who presented to the ED with her brother due to witnessed recurrent seizure activities. Patient reported that she was unaware of the seizure but related onset to job related stress at local [employer]. She reported that her brother wasa present and able to narrate the course of her presenting symptoms. As per documented report, she had a witnessed seizure while in the ED that resolved with administration of Lorazepam and Phenytoin. Patient reported compliance with her anti seizure medication. She denied alcohol or illicit drug usage. No fever or chills. No reported vomiting with seizure episode. There was reported hitting of her head in the process of her seizure activity. She reported episode of headache since her admission. There is no recurrent seizure since arrival on the telemetry floor. She is currently on seizure precaution protocol. She denied any nausea, vomiting, abdominal pain, or diarrhea. no dysuria, urinary frequency, hematuria, or flank pain. She denied an dizziness, coughing, chest pain or difficulty with breathing. Her initial ED evaluation was unrevealing regarding possible etiology of her seizure activity. Her CT head a=was essentially normal. Her morbidities are as listed below. She was advised hospitalization for further evaluation and management. Hospital Course Hospital Course: Patient was admitted for recurrent witnessed seizure activities. Her serum Levetiracetam is not available to me at the to me of her discharge. She demonstrated no recurrent seizure since on admission and continuation of her preadmission seizure medication. She related her recent increase seizure frequency to ongoing job related stress environment. I will write to her employer regarding her developmental mental limitation and negative contribution of stress to her medical stability. She will be discharge home today and follow up with me in the office as instructed upon discharge. Physical Exam Vital Signs: Temp Pulse Resp BP Pulse Ox 98.8 F 66 16 115/75 97 06/14/19 15:58 06/14/19 15:58 06/14/19 15:58 06/14/19 15:58 06/14/19 15:58 Intake & Output 06/13/19 06/14/19 06/15/19 06:59 06:59 06:59 Intake Total 740 960 240 Output Total 1400 700 Balance -660 260 240 Weight 93.9 kg 94.9 kg General appearance: PRESENT: no acute distress, obese Head exam: PRESENT: atraumatic, normocephalic Eye exam: PRESENT: conjunctiva pink. ABSENT: pallor, scleral icterus Ear exam: PRESENT: normal external ear exam Mouth exam: PRESENT: moist Respiratory exam: PRESENT: clear to auscultation [place]aca Cardiovascular exam: PRESENT: RRR. ABSENT: diastolic murmur, rubs, systolic murmur GI/Abdominal exam: PRESENT: normal bowel sounds, soft. ABSENT: distended, guarding, mass, organomegaly, rebound, tenderness Extremities exam: ABSENT: pedal edema Neurological exam: PRESENT: alert, awake, oriented to person, oriented to place, oriented to time, oriented to situation, CN II-XII grossly intact. ABSENT: motor sensory deficit Psychiatric exam: PRESENT: appropriate affect, normal mood. ABSENT: homicidal ideation, suicidal ideation Skin exam: PRESENT: dry, warm Results Laboratory Results: WBC 4.7 10^3/uL (4.0-10.5) 06/14/19 05:47 RBC 4.68 10^6/uL (3.72-5.28) 06/14/19 05:47 Hgb 13.4 g/dL (12.0-15.5) 06/14/19 05:47 Hct 38.0 % (36.0-47.0) 06/14/19 05:47 MCV 81 fl (80-97) 06/14/19 05:47 MCH 28.6 pg (27.0-33.4) 06/14/19 05:47 MCHC 35.2 g/dL (32.0-36.0) 06/14/19 05:47 RDW 14.0 % (11.5-14.0) 06/14/19 05:47 Plt Count 177 10^3/uL (150-450) 06/14/19 05:47 Lymph % (Auto) 48.3 % (13-45) H 06/14/19 05:47 [place] % (Auto) 6.8 % (3-13) 06/14/19 05:47 Eos % (Auto) 0.1 % (0-6) 06/14/19 05:47 Baso % (Auto) 0.5 % (0-2) 06/14/19 05:47 Absolute Neuts (auto) 2.1 10^3/uL (1.7-8.2) 06/14/19 05:47 Absolute Lymphs (auto) 2.3 10^3/uL (0.5-4.7) 06/14/19 05:47 Absolute Monos (auto) 0.3 10^3/uL (0.1-1.4) 06/14/19 05:47 Absolute Eos (auto) 0.0 10^3/uL (0.0-0.6) 06/14/19 05:47 Absolute Basos (auto) 0.0 10^3/uL (0.0-0.2) 06/14/19 05:47 Seg Neutrophils % 44.3 % (42-78) 06/14/19 05:47 Sodium 140.5 mmol/L (137-145) 06/14/19 05:47 Potassium 4.3 mmol/L (3.6-5.0) 06/14/19 05:47 Chloride 108 mmol/L (98-107) H 06/14/19 05:47 Carbon Dioxide 26 mmol/L (22-30) 06/14/19 05:47 Anion Gap 7 (5-19) 06/14/19 05:47 BUN 19 mg/dL (7-20) 06/14/19 05:47 Creatinine 0.63 mg/dL (0.52-1.25) 06/14/19 05:47 Est GFR ( Amer) > 60 (>60) 06/14/19 05:47 Est GFR (Non-Af Amer) Cancelled 06/13/19 05:51 Est GFR (MDRD) Non-Af > 60 (>60) 06/14/19 05:47 Glucose 90 mg/dL (75-110) 06/14/19 05:47 Calcium 8.8 mg/dL (8.4-10.2) 06/14/19 05:47 Magnesium 2.2 mg/dL (1.6-2.3) 06/11/19 18:37 Total Bilirubin 0.4 mg/dL (0.2-1.3) 06/14/19 05:47 Direct Bilirubin 0.3 mg/dL (0.0-0.4) 06/14/19 05:47 Neonat Total Bilirubin Not Reportable 06/14/19 05:47 Neonat Direct Bilirubin Not Reportable 06/14/19 05:47 Neonat Indirect Bili Not Reportable 06/14/19 05:47 AST 38 U/L (14-36) H 06/14/19 05:47 ALT 18 U/L (<35) 06/14/19 05:47 Alkaline Phosphatase 60 U/L (38-126) 06/14/19 05:47 Total Protein 6.8 g/dL (6.3-8.2) 06/14/19 05:47 Albumin 3.5 g/dL (3.5-5.0) 06/14/19 05:47 EGFR Cancelled 06/13/19 05:51 Serum Alcohol < 10 mg/dL (NONE DETECTED) 06/11/19 18:37 Impressions: Head CT 06/11/19 22:56 IMPRESSION: No acute intracranial findings. Plan Health Concerns: Contribution of stressful work environment on her seizure disorder and mental health. Plan of Treatment: Continue preadmission medication schedule. follow up on pending Levetiracetam serum level to make any dosage adjustment or addition of any other anti seizure medication. Goals: Continue medication management with socioeconomic support. Time Spent: Greater than 30 Minutes Stroke Is this a Stroke Patient?: No Acute Heart Failure - Is this a Heart Failure Patient?: No
[2019-06-14 18:09] VITALS: BP 122/82
== END 2019-06-14 18:30 | disposition home or self-care (01) ==
LOC: ER 18:26 → EH 06-12 00:47 → 5 06-12 02:40
PROVIDERS: ADMIT Internal Medicine Geriatric Medicine; ATTEND Internal Medicine Geriatric Medicine
DX: G40.909 Epilepsy, unspecified, not intractable, without status epilepticus (principal); K21.9 Gastro-esophageal reflux disease without esophagitis; G43.909 Migraine, unspecified, not intractable, without status migrainosus; N32.81 Overactive bladder; D50.0 Iron deficiency anemia secondary to blood loss (chronic); F88 Other disorders of psychological development; Z56.6 Other physical and mental strain related to work; E66.9 Obesity, unspecified; Z79.899 Other long term (current) drug therapy; Z04.3 Encounter for examination and observation following other accident
CPT/HCPCS: 99285; 96365; 36415 ×3; 80177; 80307; 83735; 85025 ×3; 80053 ×3; 70450; A9270 ×10; J1650; J2060; J1165

== ENCOUNTER 2019-11-04 07:39 | Emergency (ER) | payer MEDICARE, OTHER ==
[2019-11-04 08:19] LABS: ABSOLUTE LYMPHOCYTES (AUTO) 1.5 10^3/uL (0.5-4.7); ABSOLUTE MONOCYTES (AUTO) 0.3 10^3/uL (0.1-1.4); ABSOLUTE NEUT (AUTO) 2.5 10^3/uL (1.7-8.2); BASOPHILS % (AUTO) 0.1 % (0-2); EOSINOPHILS % (AUTO) 0.1 % (0-6); HEMATOCRIT 41.4 % (36.0-47.0); HEMOGLOBIN 14.4 g/dL (12.0-15.5); LYMPHOCYTES % (AUTO) 35.2 % (13-45); MEAN CORPUSCULAR HEMOGLOBIN 28.9 pg (27.0-33.4); MEAN CORPUSCULAR HGB CONC 34.9 g/dL (32.0-36.0); MEAN CORPUSCULAR VOLUME 83 fl (80-97); MONOCYTES % (AUTO) 6.1 % (3-13); PLATELET COUNT 187 10^3/uL (150-450); RED BLOOD COUNT 4.99 10^6/uL (3.72-5.28); RED CELL DISTRIBUTION WIDTH 13.4 % (11.5-14.0); SEGMENTED NEUTROPHILS % (AUTO) 58.5 % (42-78); TOTAL CELLS COUNTED % (AUTO) 100 %; WHITE BLOOD COUNT 4.2 10^3/uL (4.0-10.5)
[2019-11-04] MEDS ORDERED: LORAZEPAM INJ 2 MG/1 ML VIAL IV ONE (08:21)
[2019-11-04] MEDS ORDERED: LEVETIRACETAM 1500 MG/NACL-ISO 1,500 MG/100 ML RTUPB IV ONE ×2 (08:26→09:30)
[2019-11-04 08:27] LABS: ALBUMIN 4.1 g/dL (3.5-5.0); ALKALINE PHOSPHATASE 72 U/L (38-126); ANION GAP 9 (5-19); ASPARTATE AMINO TRANSFERASE 27 U/L (14-36); BILIRUBIN,TOTAL 0.6 mg/dL (0.2-1.3); BLOOD UREA NITROGEN 16 mg/dL (7-20); CALCIUM 9.6 mg/dL (8.4-10.2); CARBON DIOXIDE 23 mmol/L (22-30); CHLORIDE 106 mmol/L (98-107); GLUCOSE 109 mg/dL (75-110); POTASSIUM 4.3 mmol/L (3.6-5.0); TOTAL PROTEIN 7.5 g/dL (6.3-8.2)
[2019-11-04] MEDS ORDERED: NORMAL SALINE 500 ML IV ONE (08:30)
[2019-11-04 08:40] LABS: ALCOHOL < 10 mg/dL (NONE DETECTED)
--- NOTE | 2019-11-04 09:20 | RADIOLOGY REPORT (SQ) ---
EXAM DESCRIPTION: CT HEAD WITHOUT IMAGES COMPLETED DATE/TIME: 11/04/2019 9:02 am REASON FOR STUDY: seizure COMPARISON: 05/30/2017 MRI, CT 06/11/2019 TECHNIQUE: Axial images acquired through the brain without intravenous contrast. Images reviewed wi th bone, brain and subdural windows. Additional sagittal and coronal reconstructions were generated. Images stored on PACS. All CT scanners at this facility use dose modulation, iterative reconstruction, and/or weight based d osing when appropriate to reduce radiation dose to as low as reasonably achievable (ALARA). [facility]: Dose Right [facility]: CareDose [facility]: Dose Right [facility]: Teradose 4D [facility]: [place] RADIATION DOSE: CT Rad equipment meets quality standard of care and radiation dose reduction techniq ues were employed. CTDIvol: 53.2 mGy. DLP: 1017 mGy-cm. mGy. LIMITATIONS: EEG leads obscures fine detail. FINDINGS: VENTRICLES: Normal size and contour. CEREBRUM: No masses. No hemorrhage. No midline shift. No evidence for acute infarction. Normal gra y/white matter differentiation. No areas of low density in the white matter. CEREBELLUM: No masses. No hemorrhage. No alteration of density. No evidence for acute infarction. EXTRAAXIAL SPACES: No fluid collections. No masses. ORBITS AND GLOBE: Unchanged high density lesion within the left retrobulbar space measuring 2 cm. Th ere is associated mass effect on the optic nerve. CALVARIUM: No fracture. PARANASAL SINUSES: No fluid or mucosal thickening. SOFT TISSUES: No mass or hematoma. OTHER: No other significant finding. IMPRESSION: 1. No evidence of acute intracranial process as visualized. EEG leads obscures fine de tail. 2. Stable 2 cm left retrobulbar lesion from priors with associated mass effect on the optic nerve. EVIDENCE OF ACUTE STROKE: NO. COMMENT: Quality ID # [id number]: Final reports with documentation of one or more dose reduction techniques (e.g., Automated exposure control, adjustment of the mA and/or kV according to patient size, use of iterative reconstruction technique) TECHNICAL DOCUMENTATION: JOB ID: [id number] 2010 [employer]- All Rights Reserved Reading location - IP/workstation name: [id number]
--- NOTE | 2019-11-04 09:21 | RADIOLOGY REPORT (SQ) ---
EXAM DESCRIPTION: CHEST SINGLE VIEW IMAGES COMPLETED DATE/TIME: 11/04/2019 9:03 am REASON FOR STUDY: seizure COMPARISON: 07/16/2007 EXAM PARAMETERS: NUMBER OF VIEWS: One view. TECHNIQUE: Single frontal radiographic view of the chest acquired. RADIATION DOSE: NA LIMITATIONS: None. FINDINGS: LUNGS AND PLEURA: No opacities, masses or pneumothorax. No pleural effusion. MEDIASTINUM AND HILAR STRUCTURES: No masses. Contour normal. HEART AND VASCULAR STRUCTURES: Heart normal in size. Normal vasculature. BONES: No acute findings. HARDWARE: None in the chest. OTHER: No other significant finding. IMPRESSION: NO ACUTE RADIOGRAPHIC FINDING IN THE CHEST. TECHNICAL DOCUMENTATION: JOB ID: [id number] 2010 [employer]- All Rights Reserved Reading location - IP/workstation name: [email or web address]
--- NOTE | 2019-11-04 10:39 | EKG REPORT ---
SEVERITY:- NORMAL ECG - SINUS RHYTHM : Confirmed by: Arturo Ray MD 04-Nov-2019 10:38:55
--- NOTE | 2019-11-04 11:32 | ER Document Report ---
Entered by MARYSE AVERY SCRIBE 11/04/19 0821 Acting as scribe for:NELLY MORRISON MD ED Seizure - General Chief Complaint: Seizure Stated Complaint: SEIZURE Time Seen by Provider: 11/04/19 08:17 Primary Care Provider: AFRICA PÉREZ MD [Primary Care Provider] - Follow up as needed Information source: Patient, Emergency Med Personnel, [facility] Records Notes: This 53 year old female patient presents to the emergency department today with arrival by EMS. Medical history not obtainable by patient due to having a seizure during physical exam. Medical history was given by EMS report and nurses. Patient has a history of seizures and is on medication, with last taking it this morning. Patient had a witnessed seizure at home in front of family and EMS were called to bring her to the ED. Patient revisited for physical exam. Patient was alert and oriented. Patient states she has a appointment with her Neurologist today at 12 pm. Patient states she takes keppra everyday and takes it regularly. Patient states she has a mild headache and denies chest pain or vision changes. 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 - Related Data Allergies/Adverse Reactions: amoxicillin trihydrate [From Augmentin] Allergy (Intermediate, Verified 06/11/19 18:43) itching apple Allergy (Intermediate, Verified 06/12/19 09:04) Generalized Itching Penicillins Allergy (Intermediate, Verified 06/11/19 18:43) itching Potassium Clavulanate * [From Augmentin] Allergy (Intermediate, Verified 06/11/19 18:43) itching latex [Latex] Allergy (Mild, Verified 06/11/19 18:43) hands red and itching CRYSTAL SUGAR Allergy (Severe, Uncoded 06/11/19 18:43) ITCHING FROSTED MINI WHEATS Allergy (Severe, Uncoded 06/11/19 18:43) ITCHING Past Medical History - General Information source: Patient, Emergency Med Personnel, [facility] Records - Social History Smoking Status: Unknown if Ever Smoked Lives with: Family Family History: None Patient has homicidal ideation: No Neurological Medical History: Reports: Hx Seizures - LAST SZ 11YRS AGO Musculoskeletal Medical History: Reports Hx Arthritis - BACK, Reports Hx Musculoskeletal Trauma Traumatic Medical History: Reports: Hx Fractures - Toe Past Surgical History: Reports: Hx Oral Surgery, Hx Thyroid Surgery - Immunizations Hx Diphtheria, Pertussis, Tetanus Vaccination: No Hx Pneumococcal Vaccination: 01/29/19 Review of Systems - Review of Systems Constitutional: No symptoms reported EENT: See HPI Cardiovascular: See HPI. denies: Chest pain Respiratory: No symptoms reported Gastrointestinal: No symptoms reported Genitourinary: No symptoms reported Female Genitourinary: No symptoms reported Musculoskeletal: No symptoms reported Skin: No symptoms reported Hematologic/Lymphatic: No symptoms reported Neurological/Psychological: See HPI, Seizure, Headaches -: Yes All other systems reviewed and negative Physical Exam - Vital signs Vitals: Temp Resp BP Pulse Ox 98.5 F 20 121/95 H 97 11/04/19 07:43 11/04/19 07:43 11/04/19 07:43 11/04/19 07:43 - General General appearance: Alert, Other - Appears non-toxic - HEENT Head: Normocephalic, Atraumatic Eyes: Normal Extraocular movements intact: Yes Pupils: PERRL - Respiratory Respiratory status: No respiratory distress Chest status: Nontender Breath sounds: Normal Chest palpation: Normal - Cardiovascular Rhythm: Regular Heart sounds: Normal auscultation Murmur: No - Abdominal Inspection: Normal Distension: No distension Bowel sounds: Normal Tenderness: Nontender - Extremities General upper extremity: Normal inspection. No: Edema General lower extremity: Normal inspection, Normal ROM. No: Edema - Neurological Neuro grossly intact: Yes Cognition: Normal Orientation: AAOx4 Speech: Normal Cranial nerves: Normal Sensory: Normal - Psychological Associated symptoms: Normal affect, Normal mood - Skin Skin Temperature: Warm Skin Moisture: Dry Skin Color: Normal Course - Re-evaluation Re-evalutation: 11/04/19 11:26 Patient had a spontaneous seizure that lasted about 45seconds upon awakening when I entered the room. Patient started staring to the left and then went into [place] seizure. There was no tongue biting or urinary incontinence. Patient was then given 2 mg IV lorazepam for further management and control of seizure activity and then bolus IV Keppra 1500 mg which is her usual a.m. dose. There has been no further seizure activity this morning while in the department. Currently patient is oriented alert not showing any signs of distress. Nonfocal exam neurologically. - Vital Signs Vital signs: Temp Pulse Resp BP Pulse Ox 98.5 F 18 125/91 H 99 11/04/19 07:43 11/04/19 11:01 11/04/19 11:01 11/04/19 11:01 11/04/19 11:27 Vital signs are stable afebrile - Laboratory Result Diagrams: 11/04/19 07:59 11/04/19 07:59 Laboratory results interpreted by me: Laboratories are essentially within normal limits. - Diagnostic Test Radiology reviewed: Image reviewed, Reports reviewed Radiology results interpreted by me: 11/04/19 11:28 Chest x-ray shows no acute process no evidence of any aspiration. 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 - EKG Interpretation by Me Additional EKG results interpreted by me: 11/04/19 11:29 Twelve-lead EKG shows a normal sinus rhythm rate of 92 no acute changes. Discharge - Discharge Clinical Impression: Chronic seizure disorder with history of head trauma, Seizure disorder Condition: Stable Disposition: HOME, SELF-CARE Additional Instructions: Seizure, Known Epileptic You have had a seizure. Seizures may "break through" in an epileptic due to stress of infection or injury, a change in blood chemistry, or drug and alcohol use. Another common cause is failure to take medication as prescribed. Your doctor has evaluated your situation for the likely cause of this seizure. It is important that you follow his advice concerning any medication changes and follow-up care. Further testing of anti-seizure medication levels in your blood may be necessary. 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 This seizure must be reported to the van driver helper's license bureau. Call the doctor or return if seizures recur, or if new or unusual symptoms arise -- such as severe headache, confusion, excessive sleepiness, local weakness or numbness, neck stiffness, or fever. You have an appointment today at 11:00 with your neurologist. From what I understand you have been wearing an EEG monitor for several days at this time and that today was the day that they monitor leads were to be removed. You have been discharged so that you can get your appointment time with the neurologist today at 11:00. Continue your usual medicines and further instructions per your neurologist. Referrals: OSUNKOYA,AFRICA, MD [Primary Care Provider] - Follow up as needed I personally performed the services described in the documentation, reviewed and edited the documentation which was dictated to the scribe in my presence, and it accurately records my words and actions.
[2019-11-04 11:59] VITALS: BP 133/85
== END 2019-11-04 11:36 | disposition home or self-care (01) ==
LOC: ER 07:39
DX: G40.909 Epilepsy, unspecified, not intractable, without status epilepticus (principal); R51 Headache; Z88.0 Allergy status to penicillin; Z91.040 Latex allergy status
CPT/HCPCS: 93005; 99285; 96375; 96365; 36415; 80177; 80307; 83735; 84703; 85025; 80053; 84484; 71045; 70450; 93010; J2060; J7040; J1953

== ENCOUNTER → 2020-03-03 | Outpatient (CLI) | payer MEDICARE, OTHER ==
--- NOTE | 2020-03-03 15:10 | WOMENS IMAGING REPORT ---
EXAM DESCRIPTION: BILAT SCREENING MAMMO W/CAD IMAGES COMPLETED DATE/TIME: 03/03/2020 2:36 pm REASON FOR STUDY: Z12.31 ENCOUNTER FOR SCREENING MAMMOGRAM FOR MALIGNANT NEOPLASM OF BREAST Z12.31 ENCNTR SCREEN MAMMOGRAM FOR MALIGNANT NEOPLASM OF GREGORIO COMPARISON: 02/18/2019 and 02/13/2018. EXAM PARAMETERS: Standard craniocaudal and mediolateral oblique views of each breast recorded using digital acquisition. Read with the assistance of CAD. .[facility] - R2 Office Bookkeeper Version 9.2 LIMITATIONS: None. FINDINGS: Findings present which are benign by mammographic criteria. No suspicious masses, calcifi cations or architectural distortion. Pertinent benign findings: Benign calcifications. Benign mammographic findings may include one or more of the following: Smooth masses, popcorn/rim/co arse calcifications, asymmetries, post-procedure changes, and lesions with long-standing stability. IMPRESSION: BENIGN MAMMOGRAPHIC FINDINGS. BIRADS 2 BREAST DENSITY: c. The breasts are heterogeneously dense, which may obscure small masses. BIRAD: ASSESSMENT: 2 BENIGN FINDING(S) RECOMMENDATION: ROUTINE SCREENING COMMENT: The patient has been notified of the results by letter per [place] requirements. Additional no tification policies are in place for contacting patient with suspicious or incomplete findings. Quality ID #[id number]: The [employer] recommends an annual screening mammogram for women aged 40 years or over. This facility utilizes a reminder system to ensure that all patients receive reminder letters, and/or direct phone calls for appointments. This includes reminders for routine scr eening mammograms, diagnostic mammograms, or other Breast Imaging Interventions when appropriate. Th is patient will be placed in the appropriate reminder system. TECHNICAL DOCUMENTATION: FINDING NUMBER: (1) ASSESSMENT: (1) JOB ID: [id number] 2010 [employer]- All Rights Reserved Reading location - IP/workstation name: [facility] [employer] [facility]-[email or web address]
== END ==
LOC: WI 14:07
PROVIDERS: ATTEND Nurse Practitioner Adult Health
DX: Z12.31 Encounter for screening mammogram for malignant neoplasm of breast (principal)
CPT/HCPCS: 77067

== ENCOUNTER 2020-03-15 17:11 | Emergency (ER) | payer MEDICARE, OTHER ==
--- NOTE | 2020-03-15 17:31 | ER Document Report ---
ED Medical Screen (RME) - General Stated Complaint: CONGESTION, SORE THROAT, COUGH Time Seen by Provider: 03/15/20 17:23 Primary Care Provider: AFRICA PÉREZ MD [Primary Care Provider] - Follow up as needed Mode of Arrival: Ambulatory Information source: Patient Notes: HPI; 54-year-old female with a past medical history significant for seizures presents to the emergency room complaining of a sore throat that started last night. Today woke up with cough and congestion. No fevers. No medications for symptoms. Eating and drinking normally. Brother with similar symptoms. Denies any recent COVID-19 exposure. PE: Alert and oriented x3. No pharyngeal erythema or exudate. Lungs: Clear to auscultation without rales, rhonchi, wheezes. Heart: Regular rate rhythm without murmurs, rubs, gallops. I have greeted and performed a rapid initial assessment of this patient. A comprehensive ED assessment and evaluation of the patient, analysis of test results and completion of the medical decision making process will be conducted by additional ED providers. I have specifically instructed the patient or family members with the patient to immediately return to any nursing staff sh ould anything change in the patient's condition or with their chief complaint. TRAVEL OUTSIDE OF THE [place] IN LAST 30 DAYS: No - Related Data Allergies/Adverse Reactions: amoxicillin trihydrate [From Augmentin] Allergy (Intermediate, Verified 06/11/19 18:43) itching apple Allergy (Intermediate, Verified 06/12/19 09:04) Generalized Itching Penicillins Allergy (Intermediate, Verified 06/11/19 18:43) itching Potassium Clavulanate * [From Augmentin] Allergy (Intermediate, Verified 06/11/19 18:43) itching latex [Latex] Allergy (Mild, Verified 06/11/19 18:43) hands red and itching CRYSTAL SUGAR Allergy (Severe, Uncoded 06/11/19 18:43) ITCHING FROSTED MINI WHEATS Allergy (Severe, Uncoded 06/11/19 18:43) ITCHING Past Medical History - Past Medical History Cardiac Medical History: Denies: Hx Coronary Artery Disease, Hx Heart Attack, Hx Hypertension Pulmonary Medical History: Denies: Hx Asthma, Hx Bronchitis, Hx COPD, Hx Pneumonia Neurological Medical History: Reports: Hx Seizures - LAST SZ 11YRS AGO. Denies: Hx Cerebrovascular Accident Renal/ Medical History: Denies: Hx Peritoneal Dialysis Musculoskeltal Medical History: Reports Hx Arthritis - BACK, Reports Hx Musculoskeletal Trauma Traumatic Medical History: Reports: Hx Fractures - Toe Past Surgical History: Reports: Hx Oral Surgery, Hx Thyroid Surgery. Denies: Hx Hysterectomy - Immunizations Hx Diphtheria, Pertussis, Tetanus Vaccination: No Doctor's Discharge - Discharge Referrals: AFRICA PÉREZ MD [Primary Care Provider] - Follow up as needed
--- NOTE | 2020-03-15 20:21 | RADIOLOGY REPORT (SQ) ---
EXAM DESCRIPTION: CHEST SINGLE VIEW CLINICAL HISTORY: 54 years Female, cough COMPARISON: Single view of the chest November 04, 2019 FINDINGS: Lungs: Lung volumes and aeration have improved when compared the previous exam. There is no focal consolidation. No pneumothorax or pleural effusion. Mediastinum: Cardiac and mediastinal silhouette are normal. Bones: Osseous structures are normal. IMPRESSION: Improvement in lung volumes and aeration. No acute process. No pneumonia or edema.
[2020-03-15 20:38] VITALS: BP 128/82
--- NOTE | 2020-03-15 20:46 | ER Document Report ---
ED Respiratory Problem - General Stated Complaint: CONGESTION, SORE THROAT, COUGH Time Seen by Provider: 03/15/20 17:23 Primary Care Provider: AFRICA PÉREZ MD [Primary Care Provider] - Follow up as needed Mode of Arrival: Ambulatory Notes: CHIEF COMPLAINT: Cough for 1 day HPI: 34-year-old female presenting for sore throat and cough for 1 day. ROS: See HPI - all other systems were reviewed and are otherwise negative Constitutional: no fever Eyes: no drainage, no blurred vision ENT: no runny nose, + sore throat Cardiovascular: no chest pain Resp: no SOB, + cough GI: no vomiting, no diarrhea, no abdominal pain : no dysuria Integumentary: no rash Allergy: no hives Musculoskeletal: no extremity pain or swelling Neurological: no numbness/tingling, no weakness MEDICATIONS: I agree with the patient medications as charted by the RN. ALLERGIES: I agree with the allergies as charted by the RN. PAST MEDICAL HISTORY/PAST SURGICAL HISTORY: Reviewed and agree as charted by RN. SOCIAL HISTORY: Reviewed and agree as charted by RN. FAMILY HISTORY: No significant familial comorbid conditions directly related to patient complaint EXAM: Reviewed vital signs as charted by RN. CONSTITUTIONAL: Alert and oriented and responds appropriately to questions. Well-appearing; well-nourished HEAD: Normocephalic; atraumatic EYES: PERRL; Conjunctivae clear, sclerae non-icteric ENT: normal nose; no rhinorrhea; moist mucous membranes; pharynx without lesions noted, no uvula edema or deviation, no tonsillar hypertrophy, phonation normal NECK: Supple without meningismus; non-tender; no cervical lymphadenopathy, no masses CARD: RRR; no murmurs, no clicks, no rubs, no gallops; symmetric distal pulses RESP: Normal chest excursion without splinting or tachypnea; breath sounds clear and equal bilaterally; no wheezes, no rhonchi, no rales, pulse oximetry 97% on room air not hypoxic ABD/GI: Normal bowel sounds; non-distended; soft, non-tender, no rebound, no guarding; no palpable organomegaly or masses. BACK: The back appears normal and is non-tender to palpation, there is no CVA tenderness EXT: Normal ROM in all joints; non-tender to palpation; no cyanosis, no effusions, no edema SKIN: Normal color for age and race; warm; dry; good turgor; no acute lesions noted NEURO: Moves all extremities equally; Motor and sensory function intact PSYCH: The patient's mood and manner are appropriate. Grooming and personal hygiene are appropriate. MDM: 54-year-old female presenting with sore throat with nasal and chest congestion for 1 day. No fever no shortness of breath no chest pain. [facility] her brother is also being seen for similar symptoms. She took no medications for her symptoms. Chest x-ray and strep swab obtained in triage process were both negative for acute findings. Likely a viral etiology she will be a person under investigation for COVID-19 self quarantine at home symptomatic treatment return if worse TRAVEL OUTSIDE OF THE [place] IN LAST 30 DAYS: No - Related Data Allergies/Adverse Reactions: amoxicillin trihydrate [From Augmentin] Allergy (Intermediate, Verified 06/11/19 18:43) itching apple Allergy (Intermediate, Verified 06/12/19 09:04) Generalized Itching Penicillins Allergy (Intermediate, Verified 06/11/19 18:43) itching Potassium Clavulanate * [From Augmentin] Allergy (Intermediate, Verified 06/11/19 18:43) itching latex [Latex] Allergy (Mild, Verified 06/11/19 18:43) hands red and itching CRYSTAL SUGAR Allergy (Severe, Uncoded 06/11/19 18:43) ITCHING FROSTED MINI WHEATS Allergy (Severe, Uncoded 06/11/19 18:43) ITCHING Past Medical History - General Information source: Patient - Social History Smoking Status: Unknown if Ever Smoked Family History: None - Past Medical History Cardiac Medical History: Denies: Hx Coronary Artery Disease, Hx Heart Attack, Hx Hypertension Pulmonary Medical History: Denies: Hx Asthma, Hx Bronchitis, Hx COPD, Hx Pneumonia Neurological Medical History: Reports: Hx Seizures - LAST SZ 11YRS AGO. Denies: Hx Cerebrovascular Accident Renal/ Medical History: Denies: Hx Peritoneal Dialysis Musculoskeletal Medical History: Reports Hx Arthritis - BACK, Reports Hx Musculoskeletal Trauma Traumatic Medical History: Reports: Hx Fractures - Toe Past Surgical History: Reports: Hx Oral Surgery, Hx Thyroid Surgery. Denies: Hx Hysterectomy - Immunizations Hx Diphtheria, Pertussis, Tetanus Vaccination: No Hx Pneumococcal Vaccination: 01/29/19 Physical Exam - Vital signs Vitals: Temp Pulse Resp BP Pulse Ox 97.6 F 58 L 16 128/82 H 100 03/15/20 20:36 03/15/20 20:36 03/15/20 20:36 03/15/20 20:36 03/15/20 20:36 Course - Vital Signs Vital signs: Temp Pulse Resp BP Pulse Ox 97.6 F 58 L 16 128/82 H 100 03/15/20 20:36 03/15/20 20:36 03/15/20 20:36 03/15/20 20:36 03/15/20 20:36 Discharge - Discharge Clinical Impression: Sore throat (viral), Person under investigation for COVID-19, Cough Condition: Stable Disposition: HOME, SELF-CARE Instructions: COVID-19 Guidance for Persons Under Investigation Additional Instructions: You are considered a person under investigation for COVID-19 at this time, self quarantine at home pending your test results. Your chest x-ray and strep test today were both negative for acute findings. Your Covid test result should take 2 to 5 days, you should receive notification from the hospital about your test results. Return for worsened condition Prescriptions: Guaifenesin/Dextromethorphan [Mucinex Dm ER 600-30 mg Tablet] 1 each PO BID #20 [id number] Referrals: AFRICA PÉREZ MD [Primary Care Provider] - Follow up as needed
== END 2020-03-15 21:16 | disposition home or self-care (01) ==
LOC: ER 17:11
DX: J02.9 Acute pharyngitis, unspecified (principal); R68.89 Other general symptoms and signs; R05 Cough; Z20.828 Contact with and (suspected) exposure to other viral communicable diseases
CPT/HCPCS: 99284; 87070; 87880; 71045; U0003; C9803; 87635